=== PATIENT | female | born 1965 | race African-American/Black ===

== ENCOUNTER 2016-09-01 08:27 | Day surgery (SDC) | payer OTHER ==
[2016-08-27 09:54] VITALS: BMI 31.1
[2016-09-01] MEDS ORDERED: GUM MASTIC/STORAX/MSAL/ALCOHOL 1 DRP DROPSBTL MC ONE (09:40)
[2016-09-01] MEDS ORDERED: LIDOCAINE HCL 1%, 10 MG/ML (20ML VIAL) ONE (09:40)
[2016-09-01] MEDS ORDERED: MIDAZOLAM HCL 2 MG/2 ML SINGLE DOSE VIAL ONE (09:43)
[2016-09-01] MEDS ORDERED: PROPOFOL 20 ML ONE ×2 (10:06→10:19)
[2016-09-01] MEDS ORDERED: ROCURONIUM BROMIDE 50 MG/5 ML VIAL ONE ×2 (10:19→13:46)
[2016-09-01] MEDS ORDERED: ceFAZolin SODIUM 1 GM VIAL ONE ×2 (10:26→14:38)
[2016-09-01] MEDS ORDERED: HYDROmorphone HCL/PF 1 MG/ML VIAL (FOR PYXIS CHARGING ONLY) ONE ×3 (10:39→13:37)
[2016-09-01] MEDS ORDERED: DEXAMETHASONE SOD PHOSPHATE 4 MG/1 ML VIAL ONE ×2 (10:39→14:34)
[2016-09-01] MEDS ORDERED: ONDANSETRON 4 MG/2 ML VIAL ONE ×2 (10:39→14:34)
[2016-09-01] MEDS ORDERED: LIDOCAINE 1%-EPI 1:100,000 30 ML MDV IJ ONE (10:45)
[2016-09-01] MEDS ORDERED: LIDOCAINE 1%/EPI 1:100000 (50 ML MULTI DOSE VIAL) INF ONE ×3 (10:45)
[2016-09-01] MEDS ORDERED: ePHEDrine SULFATE 50 MG/1 ML AMPULE ONE (11:15)
[2016-09-01] MEDS ORDERED: ZOLPIDEM TARTRATE 5 MG TABLET PO PRN (15:15)
[2016-09-01] MEDS ORDERED: LACTATED RINGERS SOLUTION 1,000 ML IV SCH (15:15)
[2016-09-01] MEDS ORDERED: ONDANSETRON 4 MG/2 ML VIAL IVPB PRN (15:15)
[2016-09-01] MEDS ORDERED: ACETAMINOPHEN 325 MG TABLET (FP) PO PRN (15:15)
[2016-09-01] MEDS ORDERED: HYDROmorphone *PCA* 10MG/50ML DISP.SYRIN PCA ONE (15:17)
[2016-09-01] MEDS ORDERED: OXYCODONE/APAP 5/325MG COMBO TABLET PO PRN (15:24)
[2016-09-01] MEDS: HYDROmorphone *PCA* 10MG/50ML DISP.SYRIN PCA SCH ×2 (15:30→17:00)
--- NOTE | 2016-09-01 15:40 | OP ---
Operative Note - Note: Operative Date: 09/01/16 Pre-Operative Diagnosis: Macromastia and excess abdominal tissue Operation: bilateral breast reduction and abdominalplasty with liposuction of flanks. Findings: same Implants: none Post-Operative Diagnosis: Same as Pre-op Surgeon: Bennie Rodas Silviculture Teacher: Yu Johnson Anesthesiologist/E/M ENGINEER: Hannah Hardin Anesthesia: General Specimens Removed: breast tissue and abdominal skin and fat, and flanks fat Estimated Blood Loss (mls): 50 Drains & Tubes with Location: bilateral blakes to lower abdomen. [place] to bilateral breasts Operative Report Dictated: Yes
[2016-09-01] MEDS ORDERED: ONDANSETRON 4 MG/2 ML VIAL IVPUSH ONE (21:00)
[2016-09-01] MEDS: CEFAZOLIN 1 GM/D5W 50 ML IVPB SCH (21:53)
[2016-09-02] MEDS: OXYCODONE/APAP 5/325MG COMBO TABLET PO PRN ×4 (01:37→14:24)
[2016-09-02] MEDS: CEFAZOLIN 1 GM/D5W 50 ML IVPB SCH ×2 (02:47→09:27)
[2016-09-02] MEDS ORDERED: ENOXAPARIN NA (PORCINE) 40 MG/0.4 ML DISP.SYRIN SQ SCH (08:00)
--- NOTE | 2016-09-02 08:52 | OP ---
DATE OF OPERATION: 09/01/2016 SURGEON: Indu Rodas MD SADDLE STITCHING MACHINE OPERATOR: Yu Johnson PA-C PREOPERATIVE DIAGNOSIS: Abdominal deformity. POSTOPERATIVE DIAGNOSIS: Abdominal deformity. OPERATIVE PROCEDURES: 1. Abdominoplasty. 2. Suction-assisted lipectomy of flanks and hips. OPERATIVE PROCEDURE INDICATION: The patient underwent breast reduction surgery and also underwent this procedure as a combined procedure. This will be dictated under separate cover. OPERATIVE PROCEDURE IN DETAIL: The patient was taken to the operating room, and after induction of general anesthesia in supine position, both arms were extended and padded. Venodyne boots were placed. The patient was marked in the standing position preoperatively for outline of the abdominoplasty with the patient's knowledge and her in attendance. After being placed supine on the operating room table, and performing the reduction mammaplasty prior, an incision was made according to the pattern down through the skin down through the subcutaneous tissue to the underlying abdominal wall. The tissues were raised and then a block of tissue from the lower abdomen including the circumscribed umbilicus which was dropped back removing a large block of tissue from the anterior abdominal wall in the usual fashion for abdominoplasty. The abdominal tissue weighed 1903 grams. The tissues were discarded and then undermining of the tissues was up to the costal margins in the midline and in the lateral portions the pedicles were left in order to perfuse the abdominal wall. At this point, suction-assisted lipectomy was carried out using the body-jet. Tissue was removed from the flanks and thighs in the usual fashion and attention was turned back to the wound. After the elevation of the flaps themselves, the patient was placed into the sitting position and the anterior abdominal wall was brought down to its new anatomic position. Tension-reducing sutures were placed into the abdominal wall just above the umbilicus and in multiple places along the anterior abdominal wall tacking the sutures with 2-0 Vicryl sutures on the anterior abdominal wall. Two large drains were brought out through separate stab wounds in the pubic area for a 19-[place]. This was inserted into the area to prevent seroma. The wound was then closed in layers using 2-0 Vicryl suture on Radha fascia, 3-0 PDS in a deep dermal fashion, and 4-0 Biosyn in a subcuticular fashion. The umbilicus was brought out into its anatomic position using the eye glass technique and suturing using 3-0 PDS suture in the deep tissue and 5-0 plain cat gut sutures in the skin. The patient was dressed sterilely with fluff dressings, an abdominal binder, and was brought to the recovery room in satisfactory condition. She tolerated the procedure well. INDU RODAS M.D. [id number]
--- NOTE | 2016-09-02 09:10 | OP ---
DATE OF OPERATION: 09/01/2016 SURGEON: Roman Rodas MD FIELD SERVICE POULTRY TECHNICIAN: Yu Johnson PA-C PREOPERATIVE DIAGNOSIS: Symptomatic macromastia. POSTOPERATIVE DIAGNOSIS: Symptomatic macromastia. OPERATIVE PROCEDURE: Bilateral reduction mammoplasty. OPERATIVE INDICATIONS: The patient is a 51-year-old black female who has severe pain, discomfort, rashes and symptoms related to her H-cup breasts. The patient has had multiple treatments, which were nonresponsive, and now is brought to the operating room for bilateral reduction mammoplasty. The risks and benefits of surgical versus nonsurgical alternatives, as well as the material complications of the procedure were described to the patient on multiple occasions preoperatively. She agreed to the planned procedure. OPERATIVE PROCEDURE IN DETAIL: The patient was taken to the operating room, and after the induction of general anesthesia, in the supine position, both arms were extended and padded. Venodyne boots were placed. After time-out and prepping and draping in the usual fashion, attention was turned to the procedure. The markings which were made in the standing position for outline of the Martin-pattern reduction mammoplasty were re-outlined on the chest wall and confirmed. At this point, 1% local lidocaine anesthesia with 1:100,000 epinephrine was injected only into the incisions for reduction of hemostatic problems intraoperatively. An incision was made down through the skin and subcutaneous tissue according to the pattern, down through the subcutaneous tissue, forming an inferior glandulopedicle technique with a central mound. The pedicle was fashioned so that the nipple-areolar complex was de-epithelialized on the pedicle and left in the central portion. were made approximately 1.5 cm in thickness all the way up to the pectoralis major muscle superiorly, removing large blocks of tissue from the medial, central and lateral portions of the right breast. Seven hundred forty (740) grams of tissue was removed from the right breast and sent for pathologic diagnosis. The wounds were copiously irrigated. Hemostasis was meticulously obtained x3. Then a Chazy drain was threaded across the pedicle and out the lateral portion of the wound. The central pedicle was tacked using 2-0 Vicryl sutures in the central portion in order to centralize the pedicle for result. At this point attention was turned to the skin flaps. These were advanced and closed upon the breast itself in the usual inverted T-shaped anchor scar and circumareolarly around the nipple complex, which was brought out to its new anatomic position. 2-0 Vicryl suture was used to close the deep fascia, 3-0 PDS on the deep dermis and 4-0 Biosyn in a subcuticular fashion. The exact same procedure was carried out slightly asymmetrically as the left breast was significantly larger. The same was carried and removed 1063 grams of tissue from the left breast. The same hemostasis with tacking of the pedicle was carried out. All wounds were closed symmetrically to the opposite side. The nipple complex was brought out to its anatomic position using 3-0 PDS and 4-0 Biosyn. Good symmetry was seen in the sitting position. The patient's nipple-areolar complexes showed good viability. The patient tolerated the procedure well. She was awakened, extubated and transferred to the recovery room in a Surgi-Bra. ROMAN RODAS M.D. [id number]
[2016-09-02] MEDS ORDERED: KETOROLAC TROMETHAMINE 30 MG/1 ML VIAL IM ONE (11:00)
[2016-09-02] MEDS ORDERED: KETOROLAC TROMETHAMINE 30 MG/1 ML VIAL IVPUSH ONE (11:00)
--- NOTE | 2016-09-02 11:29 | PN ---
Progress Note, Physician Chief Complaint: Pt. having severe pain that improved after toradol was added this morning. Had severe nausea with OFFSET PRINTER. So was switched to percocet last night. No GA complaints. - Current Medication List Current Medications: Active Medications Acetaminophen (Tylenol -) 650 mg PO Q4H PRN PRN Reason: FEVER Bupropion HCl (Wellbutrin Xl -) 300 mg PO DAILY [facility] Last Admin: 09/02/16 09:28 Dose: 300 mg Diphenhydramine HCl (Benadryl Injection -) 25 mg IVPB Q4H PRN PRN Reason: FOR ITCHING Last Admin: 09/01/16 22:29 Dose: 25 mg Enoxaparin Sodium (Lovenox -) 40 mg SQ DAILY@0800 [facility] Last Admin: 09/02/16 09:27 Dose: 40 mg Fentanyl (Sublimaze Injection -) 50 mcg IVPUSH [id number] PRN PRN Reason: PAIN Stop: 09/04/16 15:26 Last Admin: 09/01/16 15:40 Dose: 25 mcg Cefazolin Sodium (Ancef 1 Gm Premixed Ivpb -) 50 mls @ 100 mls/hr IVPB Q6H UMER Stop: 09/02/16 15:29 Last Admin: 09/02/16 09:27 Dose: 100 mls/hr Ondansetron HCl (Zofran Injection) 4 mg IVPB Q4H PRN PRN Reason: NAUSEA AND/OR VOMITING Last Admin: 09/01/16 19:51 Dose: 4 mg Oxycodone/Acetaminophen (Percocet 5/325 -) 2 combo PO Q6H PRN PRN Reason: PAIN LEVEL 6-10 Last Admin: 09/01/16 22:08 Dose: 2 combo Oxycodone/Acetaminophen (Percocet 5/325 -) 2 combo PO Q4H PRN PRN Reason: PAIN Last Admin: 09/02/16 09:27 Dose: 2 combo Zolpidem Tartrate (Ambien -) 5 mg PO HS PRN PRN Reason: INSOMNIA Stop: 09/02/16 15:14 Last Admin: 09/01/16 22:29 Dose: 5 mg - Objective Vital Signs: Vital Signs Temperature 97.9 F 09/02/16 06:00 Pulse Rate 79 09/02/16 06:00 Respiratory Rate 18 09/02/16 06:00 Blood Pressure 143/73 09/02/16 06:00 O2 Sat by Pulse Oximetry (%) 97 09/02/16 06:00 Constitutional: Yes: Well Nourished, No Distress, Calm Musculoskeletal: Yes: WNL Neurological: Yes: WNL, Alert, Oriented ...Motor Strength: WNL Assessment/Plan POD#1 s/p Bilateral breast reduction. liposuction, and abdominoplasty. Doing well. D/C from anesthesia care.
[2016-09-02 14:40] VITALS: BP 106/64; PULSE 64; TEMP 98.1
[2016-09-03] MEDS ORDERED: ENOXAPARIN NA (PORCINE) 40 MG/0.4 ML DISP.SYRIN SQ SCH (08:00)
--- NOTE | 2016-09-08 15:33 | PATH ---
Surgical Pathology Report Patient Name: ADITI TREVINO [facility]. Rec. #: [id number] /Age/Gender: 1965 (Age: 51) / F Account: [id number] Location: [facility] Taken: 09/01/2016 Received: 09/01/2016 Reported: 09/08/2016 Physicians: Bennie Rodas Specimen(s) Received A: RIGHT BREAST TISSUE B: LEFT BREAST TISSUE C: ABDOMINAL TISSUE Clinical History Hypertrophy of breasts/cosmetic Final Diagnosis A. BREAST TISSUE, RIGHT, REDUCTION: BENIGN BREAST TISSUE SHOWING FIBROCYSTIC CHANGES INCLUDING CYST FORMATION AND USUAL DUCTAL HYPERPLASIA (UDH). SKIN WITH NO PATHOLOGIC FINDINGS. B. BREAST TISSUE, LEFT, REDUCTION: BENIGN BREAST TISSUE SHOWING FIBROADENOMA AND FIBROCYSTIC CHANGES INCLUDING CYSTIC APOCRINE METAPLASIA WITH FEATURES OF CYST RUPTURE/REACTION AND USUAL DUCTAL HYPERPLASIA (UDH). SKIN WITH NO PATHOLOGIC FINDINGS. C. ABDOMINAL TISSUE, ABDOMINOPLASTY: SKIN AND ADIPOSE TISSUE, DESCRIBED (GROSS EXAMINATION ONLY). Electronically Signed Aiyana Sharif M.D. Gross Description A. Received in formalin labeled "right breast tissue 150 g," is a 20.0 x 19.5 x 4.5 cm aggregate of multiple irregular, unoriented portions of fibroadipose tissue and west, unremarkable skin. Sectioning reveals abundant dense, white, focally firm fibrous tissue. No definitive masses are identified. Coal Loader sections are submitted in 5 cassettes. B. Received in formalin labeled "left breast tissue 145 g," is a 22.0 x 21.0 x 5.5 cm aggregate of multiple irregular, unoriented portions of fibroadipose tissue and west, unremarkable skin. Sectioning reveals a 0.8 x 0.6 x 0.6 cm west, firm nodule. The remaining breast parenchyma displays abundant dense, white, focally firm fibrocystic tissue. Coal Loader sections are submitted in 6 cassettes with the nodule in cassette 1. C. Received in formalin labeled "abdominal tissue 145 g," is a 43.0 x 16.0 cm brown, elliptical portion of skin excised to depth of 5.2 cm. The epidermal surface is unremarkable. Sectioning of the underlying soft tissue reveals unremarkable yellow, lobulated adipose tissue. No lesions are identified. No sections are submitted, gross only. 09/02/2016 [facility]09/02/2016
== END 2016-09-02 15:00 | disposition home or self-care (01) ==
LOC: FASU 08:27 → FM/S 17:49 → FASU 09-02 15:00
PROVIDERS: ATTEND Plastic Surgery
PROC: 0HBV0ZZ Excision of Bilateral Breast, Open Approach (ICD-10-PCS; principal; 2016-09-01 10:45)
PROC: 0J080ZZ Alteration of Abdomen Subcutaneous Tissue and Fascia, Open Approach (ICD-10-PCS; 2016-09-01 10:45)
PROC: 0J083ZZ Alteration of Abdomen Subcutaneous Tissue and Fascia, Percutaneous Approach (ICD-10-PCS; 2016-09-01 10:45)
DX: N62 Hypertrophy of breast (principal); M95.8 Other specified acquired deformities of musculoskeletal system
CPT/HCPCS: 84703; 88300-TC; 88304-TC; 94010; 94760